=== PATIENT | female | born 1990 | race Caucasian/White ===

== ENCOUNTER 2021-12-07 11:32 | Outpatient (REF) | payer MEDICARE, MEDICAID, SELFPAY | END 2021-12-07 11:33 | disposition home or self-care (01) | LOC: LBN 11:32 | PROVIDERS: PCP Nurse Practitioner; Visit Provider Physician Assistant | DX: J02.9 Acute pharyngitis, unspecified (principal) | CPT/HCPCS: 87070 ==

== ENCOUNTER 2022-08-16 15:47 | Emergency (ER) | payer MEDICARE, MEDICAID, SELFPAY ==
[2022-08-16 15:57] VITALS: BP 125/68; PULSE 89; RESP 20; TEMP 37.5; O2SAT 99
--- NOTE | 2022-08-16 16:15 | DI.RAD_ITS ---
Exam(s) XR HIP LT COMPLETE AP PELVIS EXAM: XR HIP LT COMPLETE AP PELVIS CLINICAL HISTORY: acute pain, left hip/thigh. TECHNIQUE: 2D digital imaging was performed of the left hip. Two views were obtained. AP pelvis an d lateral left hip views were obtained. COMPARISON: No exams were available for comparison FINDINGS: BONES: No acute fracture is present. No bony destructive lesion is seen. JOINTS: No dislocation present. SOFT TISSUE: Normal. IMPRESSION: Unremarkable radiographs of the left hip. Unremarkable radiographs of the pelvis DATA REPOSITORY: RADIATION DOSE DELIVERED:
[2022-08-16] MEDS: Normal Saline 1,000 ML 1000 ML IV (16:35)
[2022-08-16] MEDS: ACETAMINOPHEN 1,000 MG/100 ML BTL 400 MG IVPB (16:36)
[2022-08-16] MEDS: Dexamethasone 10 MG/ML VIAL IVP (16:36)
[2022-08-16] MEDS: LORazepam 2 MG/ML VIAL 0.5 MG IVP (16:36)
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
[2022-08-16 16:53] LABS: Abs Immature Grans 0.02 10^3/uL (0.0-0.06); Absolute Basophil Count 0.04 10^3/uL (0.0-0.2); Absolute Monocyte Count 0.61 10^3/uL (0.1-0.8); Basophils % 0.6; HCT 37.9 % (36.0-46.0); HGB 12.5 g/dL (11.2-15.7); Immature Grans % 0.3; MCV 85 fL (80-95); MPV 9.5 fL (8.0-11.0); Monocytes % 9.1; Platelet Count 259 10^3/uL (130-400); RBC 4.46 10^6/uL (3.93-5.22); RDW 12.6 % (11.7-14.6); RDW-SD 38.9 fL; WBC 6.67 10^3/uL (4.4-10.8)
[2022-08-16 17:08] LABS: ALT 19 U/L (14-59); AST 18 U/L (15-37); Albumin 4.1 g/dL (3.4-5.0); Alkaline Phosphatase 49 U/L (46-116); Anion Gap 8.5 mmol/L (3-11); BUN 14 mg/dL (7-18); Bilirubin, Total 0.2 mg/dL (0.2-1.0); CO2 27.5 mmol/L (21.0-32.0); CREATININE 0.9 mg/dL (0.55-1.02); Calcium 8.7 mg/dL (8.5-10.1); Chloride 103 mmol/L (98-107); Estimated GFR 86.57 (mL/min/1.73m2); Glucose 93 mg/dL (74-106); Potassium 3.8 mmol/L (3.5-5.1); Sodium 139 mmol/L (136-145)
[2022-08-16 17:23] LABS: Bilirubin Negative (Negative); Blood Small (Negative); Clarity Clear (Clear); Glucose Negative (Negative); Ketones Negative (Negative); Leukocyte Esterase Negative (Negative); Nitrite Negative (Negative); Specific Gravity 1.025 (1.005-1.025); Urobilinogen 0.2 EU/dL (Up TO 0.2)
[2022-08-16 17:30] LABS: Bacteria Negative HPF (Negative); C & S Indicated? No; Casts Negative LPF (Negative); Crystals Negative HPF (Negative); Epithelial Cells Rare HPF (Negative); Mucus Negative (Negative); WBC Negative HPF (0-5)
[2022-08-16] MEDS: Lidocaine 5% Patch 1 PATCH TP (17:48)
--- NOTE | 2022-08-16 17:54 | DI.VRAD_ITS ---
PROCEDURE INFORMATION: Exam: XR Left Hip Exam date and time: 08/16/2022 5:37 PM Age: 31 years old Clinical indication: Other: Acute pain, left hip/thigh TECHNIQUE: Imaging protocol: Radiologic exam of the Left hip. Views: 2 or 3 views hip with pelvis when performed. COMPARISON: No relevant prior studies available. FINDINGS: Bones/joints: No acute fracture or dislocation. Joint spaces appear maintained. Soft tissues: Unremarkable. Vasculature: Pelvic phleboliths. IMPRESSION: No acute findings. Dictated and Authenticated by: Jhonny Meadows MD. Ordering:JHOANA Martinez MD
[2022-08-16 19:14] VITALS: BP 127/87; PULSE 85; RESP 18; O2SAT 98
== END 2022-08-16 19:43 | disposition home or self-care (01) ==
PROVIDERS: Emergency Provider Emergency Medicine; PCP Nurse Practitioner Family
DX: M79.652 Pain in left thigh (principal); F31.9 Bipolar disorder, unspecified; G47.419 Narcolepsy without cataplexy
CPT/HCPCS: 80053; 81025; 96361; 96374; 96375; 99284; 73502; 81003; 81015; 85025; J0131; J1100; J2060

== ENCOUNTER 2023-03-23 08:43 | Emergency (ER) | payer MEDICARE, MEDICAID, SELFPAY ==
[2023-03-23 08:45] VITALS: BP 135/90; PULSE 98; RESP 18; O2SAT 99
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
[2023-03-23] MEDS: diazePAM 10 MG/2 ML SYR 5 MG IM (09:07)
[2023-03-23] MEDS: Dexamethasone 10 MG/ML VIAL IM (09:09)
[2023-03-23 09:32] LABS: Bilirubin Negative (Negative); Blood Negative (Negative); Clarity Clear (Clear); Glucose Negative (Negative); Ketones Negative (Negative); Leukocyte Esterase Small (Negative); Nitrite Negative (Negative); Specific Gravity 1.015 (1.005-1.025); Urobilinogen 0.2 mg/dL (Up to 0.2); pH 7.5 (5-8)
[2023-03-23 09:57] LABS: Bacteria Few HPF (Negative); C & S Indicated? No/Sq. Contamination; Casts Negative LPF (Negative); Crystals Negative HPF (Negative); Epithelial Cells Moderate HPF (Negative); Mucus Negative (Negative); RBC 0-2 HPF (0-2)
[2023-03-23] MEDS: Ibuprofen 600 MG TAB PO (10:26)
[2023-03-23] MEDS: diazePAM 5 MG TAB PO (10:26)
[2023-03-23] MEDS: Lidocaine 5% Patch 1 PATCH TP (10:34)
== END 2023-03-23 12:28 | disposition home or self-care (01) ==
PROVIDERS: Emergency Provider Emergency Medicine; PCP Nurse Practitioner Family
DX: M54.50 Low back pain, unspecified (principal); M62.830 Muscle spasm of back; Z87.891 Personal history of nicotine dependence
CPT/HCPCS: 81025; 96372; 99283; 81003; 81015; J1100; J3360

== ENCOUNTER 2025-02-22 01:29 | Outpatient (CLI) | payer MEDICARE, MEDICAID, SELFPAY ==
--- NOTE | 2025-02-22 09:43 | DI.RAD_ITS ---
Exam(s) XR KNEE RT 3V AP,LAT,TERESA EXAM: XR KNEE RT 3V AP,LAT,TERESA CLINICAL HISTORY: right knee pain,sprain,[id number]. TECHNIQUE: 2D digital imaging was performed. COMPARISON: No exams were available for comparison FINDINGS: 3 views No evidence of acute fracture or prominent joint effusion. There appears to be a small amount of increased joint fluid but no large joint effusion. There is no joint space narrowing. No osteochondral defects. However, on the lateral image there is slight indentation of the articular surface of the lateral femoral condyle. This is sometimes seen with internal derangement such as ACL tear. Bone density is normal. There are no osseous lesions. IMPRESSION: Subtle finding as above at the articular surface of the lateral femoral condyle. If clinically indicated follow-up MRI can be performed to determine if there is an internal derangement. DATA REPOSITORY: RADIATION DOSE DELIVERED:
== END 2025-02-22 01:49 ==
LOC: DI 01:29
PROVIDERS: PCP Nurse Practitioner Family; Visit Provider Family Medicine
DX: S83.91XA Sprain of unspecified site of right knee, initial encounter (principal); X58.XXXA Exposure to other specified factors, initial encounter; R93.89 Abnormal findings on diagnostic imaging of other specified body structures
CPT/HCPCS: 73562

== ENCOUNTER 2025-03-12 08:55 | Outpatient (CLI) | payer MEDICARE, MEDICAID, SELFPAY ==
--- NOTE | 2025-03-12 08:30 | DI.MRI_ITS ---
Exam(s) MR LOWER JOINT RT WO EXAM: MR LOWER JOINT RT WO CLINICAL HISTORY: right knee pain, lateral xray changes,abnl xr, sprain, r93.6,[id number]. TECHNIQUE: Multiplanar multisequence MRI was performed. COMPARISON: CR XR KNEE RT 3V AP,LAT,TERESA from 02/22/2025 FINDINGS: BONES: There is no fracture or contusion pattern. There is no abnormality visible of the lateral femoral condyle. JOINTS: A minimal joint effusion is present. Articular cartilage: Patellofemoral joint: Articular cartilage is unremarkable. Medial femoral tibial joint: Articular cartilage is unremarkable. Lateral femoral tibial joint: Articular cartilage is unremarkable. LIGAMENTS/TENDONS: Anterior Cruciate: Unremarkable. Posterior Cruciate: Unremarkable. Medial Collateral:Unremarkable. Lateral Collateral ligament complex: Unremarkable. Extensor mechanism: Unremarkable. Medial retinaculum: Unremarkable. Lateral retinaculum: Unremarkable. Popliteus: Unremarkable. MENISCI: The medial meniscus is unremarkable. The lateral meniscus is unremarkable. MUSCLES: Unremarkable. SOFT TISSUES: Mild edema anterior to the patella. Mild edema in the fat inferior to the patella. Multiloculated collection adjacent to the posterior femoral condyle measuring 2.5 by 0.5 x 3.3 cm consistent with a ganglion cyst. IMPRESSION: Small ganglion cyst posterior to the lateral femoral condyle. Mild soft tissue edema. No abnormality identified in the lateral femoral condyle or overlying cartilage. No ligament tear or meniscal tear. DATA REPOSITORY:
== END 2025-03-12 09:15 ==
PROVIDERS: PCP Nurse Practitioner Family; Visit Provider Family Medicine
DX: S83.91XA Sprain of unspecified site of right knee, initial encounter (principal); R93.6 Abnormal findings on diagnostic imaging of limbs; M67.461 Ganglion, right knee; X58.XXXA Exposure to other specified factors, initial encounter
CPT/HCPCS: 73721

== ENCOUNTER 2025-05-28 16:59 | Emergency (ER) | payer MEDICARE, MEDICAID, SELFPAY ==
[2025-05-28 17:03] VITALS: BP 127/89; PULSE 81; RESP 20; TEMP 36.7; O2SAT 98
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
[2025-05-28] MEDS: Acetaminophen 500 MG TAB 1000 MG PO (18:22)
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
[2025-05-28] MEDS: Normal Saline Flush 10 ML SYR IVP (18:35)
[2025-05-28] MEDS: Normal Saline - Diluent 50 ML VIAL IJ (18:35)
[2025-05-28] MEDS: Omnipaque 350 MG/ML 100 ML BTL IJ (18:35)
[2025-05-28 19:16] VITALS: BP 130/74; PULSE 75; RESP 14; TEMP 36.9; O2SAT 97
[2025-05-28] MEDS: MORPHine IR 15 MG TAB, 4 TABS/BTL PO (19:21)
== END 2025-05-28 19:58 | disposition home or self-care (01) ==
PROVIDERS: Emergency Provider Emergency Medicine; PCP Nurse Practitioner Family
DX: S42.024A Nondisplaced fracture of shaft of right clavicle, initial encounter for closed fracture (principal); V86.56XA Driver of dirt bike or motor/cross bike injured in nontraffic accident, initial encounter
CPT/HCPCS: 99285; 70450; 71260; 72125; 73000; 99284; J3490

== ENCOUNTER 2025-06-05 13:16 | Outpatient (CLI) | payer MEDICARE, MEDICAID, SELFPAY ==
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
== END 2025-06-05 13:17 | disposition home or self-care (01) ==
LOC: DIORS 13:16
PROVIDERS: PCP Nurse Practitioner Family; Referring Provider Nurse Practitioner Family; Visit Provider Student in an Organized Health Care Education/Training Program
DX: S42.001D Fracture of unspecified part of right clavicle, subsequent encounter for fracture with routine healing (principal); X58.XXXD Exposure to other specified factors, subsequent encounter
CPT/HCPCS: 99213; 73000

== ENCOUNTER 2025-06-19 11:23 | Outpatient (CLI) | payer MEDICARE, MEDICAID, SELFPAY ==
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
== END 2025-06-19 11:24 | disposition home or self-care (01) ==
LOC: DIORS 11:24
PROVIDERS: PCP Nurse Practitioner Family; Referring Provider Nurse Practitioner Family; Visit Provider Student in an Organized Health Care Education/Training Program
DX: S42.001D Fracture of unspecified part of right clavicle, subsequent encounter for fracture with routine healing (principal); X58.XXXD Exposure to other specified factors, subsequent encounter
CPT/HCPCS: 99213; 73000

== ENCOUNTER 2025-07-10 14:43 | Outpatient (CLI) | payer MEDICARE, MEDICAID, SELFPAY ==
--- NOTE | 2025-07-10 10:45 | DI.RAD_ITS ---
Exam(s) XR CLAVICLE RT EXAM: XR CLAVICLE RT CLINICAL HISTORY: F/U FRACTURE TECHNIQUE: 2D digital imaging was performed of the right clavicle. Two images were obtained. AP and axial views were obtained. COMPARISON: CR XR CLAVICLE RT from 06/05/2025 CR XR CLAVICLE RT from 06/19/2025 FINDINGS: BONES: There has been no change in alignment of the fracture of the right clavicle since 06/19/2025. No significant callus formation is seen about the fracture. No bony destructive lesion is seen. JOINTS: No dislocation present. SOFT TISSUE: Normal IMPRESSION: No change in alignment of the right clavicular fracture since 06/19/2025. DATA REPOSITORY: RADIATION DOSE DELIVERED:
== END 2025-07-10 14:44 | disposition home or self-care (01) ==
LOC: DIORS 14:44
PROVIDERS: PCP Nurse Practitioner Family; Referring Provider Nurse Practitioner Family; Visit Provider Student in an Organized Health Care Education/Training Program
DX: S42.001D Fracture of unspecified part of right clavicle, subsequent encounter for fracture with routine healing (principal); S89.91XD Unspecified injury of right lower leg, subsequent encounter; X58.XXXD Exposure to other specified factors, subsequent encounter
CPT/HCPCS: 99214; 73000

== ENCOUNTER 2025-08-21 12:10 | Outpatient (CLI) | payer MEDICARE, MEDICAID, SELFPAY ==
--- NOTE | 2025-08-21 10:49 | DI.RAD_ITS ---
Exam(s) XR CLAVICLE RT EXAM: XR CLAVICLE RT INDICATION: RIGHT CLAVICLE FRACTURE. COMPARISON: CR XR CLAVICLE RT from 07/10/2025 TECHNIQUE: 2D digital imaging was performed. Two views. FINDINGS: The clavicle fracture shows no change in alignment. There appears to be some increased callus formation around the fracture indicating some interval healing. DATA REPOSITORY: RADIATION DOSE DELIVERED:
== END 2025-08-21 12:11 | disposition home or self-care (01) ==
LOC: DIORS 12:10
PROVIDERS: PCP Nurse Practitioner Family; Referring Provider Nurse Practitioner Family; Visit Provider Physician Assistant
DX: S42.021D Displaced fracture of shaft of right clavicle, subsequent encounter for fracture with routine healing (principal); X58.XXXD Exposure to other specified factors, subsequent encounter
CPT/HCPCS: 99212; 73000